=== PATIENT | male | born 1945 | race Caucasian/White ===

== ENCOUNTER 2021-03-11 12:07 | Day surgery (SDC) | payer MEDICARE ==
[2021-03-05 10:09] LABS: BASOPHILS % (AUTO) 0.5 % (0-1); EOSINOPHILS # (AUTO) 0.1 X10'3 (0-0.9); EOSINOPHILS % (AUTO) 1.2 % (0-6); LYMPHOCYTES # (AUTO) 1.5 X10'3 (1.1-4.8); LYMPHOCYTES % (AUTO) 14.6 % (21-51); MEAN CORPUSCULAR HEMOGLOBIN 21.5 PG (27.0-31.0); MEAN CORPUSCULAR HGB CONC 30.6 g/dL (33.0-36.5); MEAN CORPUSCULAR VOLUME 70.1 FL (78-98); MEAN PLATELET VOLUME 7.1 FL (7.4-10.4); MONOCYTES # (AUTO) 0.7 X10'3 (0-0.9); NEUTROPHILS # (AUTO) 7.7 X10'3 (1.8-7.7); NEUTROPHILS % (AUTO) 76.7 % (42-75); PRE OP HEMATOCRIT 33.1 % (42.0-52.0); PRE OP PLATELET COUNT 376 X10'3 (140-440); RED BLOOD COUNT 4.72 X10'6 (4.70-6.10)
[2021-03-05 10:10] LABS: PRE OP HEMOGLOBIN 10.1 g/dL (14.0-17.9)
[2021-03-05 10:18] LABS: PRE OP PROTIME 10.7 SECONDS (9.0-12.0)
[2021-03-05 10:27] LABS: ALBUMIN 2.4 G/DL (3.4-5.0); ALBUMIN/GLOBULIN RATIO 0.5 (1.1-1.5); ALKALINE PHOSPHATASE 143 IU/L (46-116); BLOOD UREA NITROGEN 15 MG/DL (7-18); BUN/CREATININE RATIO 10.6 (5.4-32.0); CALCIUM 9.8 MG/DL (8.5-10.1); CHLORIDE 99 MMOL/L (99-107); CREATININE 1.42 MG/DL (0.60-1.10); PRE OP ALT 20 U/L (30-65); PRE OP ANION GAP 9 (8-16); PRE OP AST 17 U/L (10-37); PRE OP BILIRUB, TOTAL 0.4 MG/DL (0.0-1.0); PRE OP GLUCOSE 116 MG/DL (70-104); PRE OP POTASSIUM 4.3 MMOL/L (3.4-5.1); PRE OP SODIUM 138 MMOL/L (135-145); TOTAL CARBON DIOXIDE 29.9 MMOL/L (24-32); TOTAL PROTEIN 7.2 G/DL (6.4-8.2); eGFR 49 ML/MIN
[2021-03-05 10:58] LABS: PLATELET ESTIMATE NORMAL
[2021-03-05 10:59] LABS: ANISOCYTOSIS 3+; HYPOCHROMASIA 1+; MICROCYTOSIS 1+; POLYCHROMASIA 1+
[2021-03-05 11:00] LABS: ACANTHOCYTES 1+; ELLIPTOCYTES 1+
[~2021-03-11] VITALS: Ht 182.9 cm; Wt 101.0 kg
[~2021-03-11 12:07] MED LIST: ASPI81TA52 PO; DOCUMENT DATE & TIME OF BETA-BLOCKER PO ONE; FURO-150 PO; LENV14CA PO; LOSA50TA64 PO; METO-395 PO; MULT-1085 PO; OXYC-150 PO; PANT-47 PO; PEMB100V IV; POTA10TA19 PO; PRED10TA23 PO; TRAM50TA2 PO; cefazolin/dext.iso 2gm/100ml 100 ML IV ONE; famotidine 20mg tablet PO ONE; ringers solution, lacted 1,000 ML IV SCH
[2021-03-11 12:45] VITALS: BP 120/48
--- NOTE | 2021-03-11 17:10 | NUR ---
DR ABREU IN TO SEE PT, DECISION TO CANCEL SURGERY TODAY. SRINATH D/CD, PT DRESSED, HAS ALL BELONGINGS AND D/C TO HOME W/S/O VIA W/C TO PRIVATE VEHICLE W/O INCIDENT. Addendum: 03/11/21 at 1712 by Chanel Sutherland RN Amended: Links added.
== END 2021-03-11 17:15 | disposition home or self-care (01) ==
LOC: PAS 12:07
PROVIDERS: ATTEND Surgery
DX: K45.8 Other specified abdominal hernia without obstruction or gangrene (principal); Z53.8 Procedure and treatment not carried out for other reasons; I10 Essential (primary) hypertension; E11.9 Type 2 diabetes mellitus without complications; F32.9 Major depressive disorder, single episode, unspecified; M10.9 Gout, unspecified; E66.9 Obesity, unspecified; Z68.30 Body mass index [BMI] 30.0-30.9, adult; Z87.442 Personal history of urinary calculi; Z86.14 Personal history of Methicillin resistant Staphylococcus aureus infection; Z90.5 Acquired absence of kidney; Z95.0 Presence of cardiac pacemaker; Z98.890 Other specified postprocedural states; Z79.82 Long term (current) use of aspirin; Z79.899 Other long term (current) drug therapy; Z85.528 Personal history of other malignant neoplasm of kidney; Z79.01 Long term (current) use of anticoagulants
CPT/HCPCS: 36415; 71046; 80053; 82948; 85008; 85025; 85610; 85730; J7120